=== PATIENT | female | born 2005 | race Hispanic/Latino ===

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

== ENCOUNTER 2025-04-25 11:52 | Emergency (ER) | payer OTHER ==
[~2025-04-25] VITALS: Ht 167.6 cm; Wt 86.2 kg
[~2025-04-25 11:52] MED LIST: CEFDINIR300 MG PO; PREDNISONE20 MG PO
[2025-04-25 13:03] VITALS: PULSE 72; RESP 18; TEMP 97.9; O2SAT 100
[2025-04-25] MEDS ORDERED: AMOX TR-K CLV1 EAC2 PO (14:15)
== END 2025-04-25 14:20 | disposition home or self-care (01) ==
LOC: ER 13:03
DX: S61.431A Puncture wound without foreign body of right hand, initial encounter (principal); S60.512A Abrasion of left hand, initial encounter; S60.312A Abrasion of left thumb, initial encounter; W54.0XXA Bitten by dog, initial encounter; Y92.89 Other specified places as the place of occurrence of the external cause
CPT/HCPCS: 99283